=== PATIENT | female | born 1995 | race Two or more races ===

== ENCOUNTER 2017-01-26 09:59 | Emergency (ER) | payer MEDICAID ==
[~2017-01-26] VITALS: Ht 154.9 cm; Wt 54.4 kg
[2017-01-26 09:59] VITALS: BP 106/70
== END 2017-01-26 10:35 | disposition home or self-care (01) ==
LOC: ER 10:05 → EDSEX 10:05 → ER 10:35
DX: I88.9 Nonspecific lymphadenitis, unspecified (principal); J02.8 Acute pharyngitis due to other specified organisms
CPT/HCPCS: 99281; A4606; Z7610; Z7502